=== PATIENT | female | born 1945 | race Caucasian/White ===

== ENCOUNTER 2019-04-07 11:06 | Inpatient (IN) | payer MEDICARE, OTHER ==
[~2019-04-07] VITALS: Ht 170.2 cm; Wt 113.4 kg
[2019-04-07] MEDS ORDERED: FAMOTIDINE 20 MG/2 ML VIAL IV STA (11:32)
[2019-04-07] MEDS ORDERED: SODIUM CHLORIDE 0.9% 1000ML 1,000 ML IV STA (11:32)
[2019-04-07] MEDS ORDERED: ONDANSETRON HCL INJ 2MG/ML 2ML 2 MG/ML VIAL IV STA (11:32)
[2019-04-07] MEDS ORDERED: ONDANSETRON HCL INJ 2MG/ML 2ML 2 MG/ML VIAL IV PRN (11:45)
[2019-04-07] MEDS ORDERED: MORPHINE SULFATE 2 MG/ML SYR 1ML IV PRN (11:55)
[2019-04-07 12:14] LABS: BASOPHILS % 0.4 % (0.0-1.0); EOSINOPHILS # (AUTO) 0.1 (0.0-0.4); HEMATOCRIT 30.1 % (34.2-44.1); HEMOGLOBIN 9.1 g/dL (12.0-16.0); LYMPHOCYTES # (AUTO) 0.9 (1.0-3.2); LYMPHOCYTES % 17.4 % (18.0-39.1); MEAN CORPUSCULAR HEMOGLOBIN 28.4 pg (28-32); MEAN CORPUSCULAR HGB CONC 30.2 g/dL (31-35); MEAN CORPUSCULAR VOLUME 94.1 fL (81-99); MONOCYTES # (AUTO) 0.3 (0.2-0.8); MONOCYTES % 5.6 % (4.4-11.3); NEUTROPHILS # (AUTO) 3.6 (2.1-6.9); NEUTROPHILS % 71.2 % (38.7-80.0); PLATELET COUNT 90 x10e3/uL (140-360); RED CELL DISTRIBUTION WIDTH 13.4 % (11.7-14.4)
[2019-04-07] MEDS: SODIUM CHLORIDE 0.9% 1000ML 1,000 ML IV SCH (12:20)
[2019-04-07 12:21] LABS: INR 1.1; PROTHROMBIN TIME 14.7 seconds (11.9-14.5)
[2019-04-07 12:22] LABS: PARTIAL THROMBOPLASTIN TIME 37.1 seconds (23.8-35.5)
[2019-04-07 12:35] LABS: ALBUMIN 2.3 g/dL (3.5-5.0); ALBUMIN/GLOBULIN RATIO 0.6 (0.8-2.0); ANION GAP 9.8 mmol/L (8-16); CALCIUM 9.2 mg/dL (8.4-10.2); CREATININE, SERUM 1.5 mg/dL (0.57-1.11); MAGNESIUM 1.6 MG/DL (1.3-2.1); POTASSIUM 4.8 mmol/L (3.5-5.1)
[2019-04-07 12:54] LABS: CREATINE KINASE MB 2.1 ng/mL (0-5.0); PHENYTOIN (DILANTIN) 4.79 ug/mL (10-20); THYROID STIMULATING HORMONE 1.983 uIU/mL (0.350-4.940)
[2019-04-07 13:41] LABS: CLARITY,URINE CLEAR (CLEAR); COLOR,URINE YELLOW (YELLOW); LEUKOCYTE ESTERASE ,URINE NEGATIVE (NEGATIVE)
[2019-04-07 13:42] LABS: BILIRUBIN,URINE NEGATIVE (NEGATIVE); KETONES,URINE NEGATIVE (NEGATIVE); NITRITE,URINE NEGATIVE (NEGATIVE); PROTEIN,URINE DIPSTICK 2+ (NEGATIVE); URINE UROBILINOGEN 0.2 mg/dL (0.2 - 1)
[2019-04-07 13:43] LABS: BACTERIA,URINE RARE /HPF; EPITHELIAL CELLS,URINE FEW /LPF
--- NOTE | 2019-04-07 13:56 | Diagnostic Imaging Report ---
History:Weakness Comparison studies:None Technique: Axial images were obtained from the skull base to the vertex. Coronal and sagittal images reconstructed from the axial data. Intravenous contrast: None Dose modulation, iterative reconstruction, and/or weight based adjustment of the mA/kV was utilized to reduce the radiation dose to as low as reasonably achievable. Findings: Scalp/skull: No abnormalities. Extra-axial spaces: No masses. No fluid collections. Calcification of the tentorium cerebelli and falx cerebri. Brain sulci: Moderately prominent. Ventricles: Moderate compensatory dilatation. No hydrocephalus. Parenchyma: Scattered hypodensities in the supratentorial white matter are small vessel ischemic changes. No masses, hemorrhage, acute or chronic cortical vascular insults. Sellar/suprasellar region: No abnormalities. Craniocervical junction: Patent foramen magnum. No Chiari one malformation. Incidental findings: Atherosclerotic calcifications in the carotid siphons . Opacification of the bilateral beauty advisor cells and left middle ear, related to inflammatory changes. Impression: No acute abnormalities. Chronic findings: 1. Moderate generalized volume loss. 2. Moderate supratentorial white matter small vessel ischemic changes. Signed by: DR Cipriano Hoffman M.D. on 04/07/2019 1:53 PM
--- NOTE | 2019-04-07 14:11 | Diagnostic Imaging Report ---
EXAM: CHEST SINGLE (PORTABLE) DATE: 04/07/2019 11:32 AM INDICATION: Short of breath, weakness COMPARISON: None IMPRESSION: The trachea is midline. There are patchy increased interstitial and airspace opacities present bilaterally which can be seen in the setting of edema or a multifocal infectious/inflammatory process. There are small bilateral pleural effusions. There is no evidence for pneumothorax or lobar consolidation. The cardiomediastinal silhouette is within normal limits. There are degenerative changes of the visualized spine. No acute osseous abnormality is identified. Signed by: Dr. Chad Caba MD on 04/07/2019 2:07 PM
--- NOTE | 2019-04-07 14:29 | NUR ---
ESTEBAN TERAN [phone], [id number]
--- NOTE | 2019-04-07 14:50 | Diagnostic Imaging Report ---
CT of the abdomen and pelvis, with contrast. History: Abdominal pain Comparison: None available. Technique: Multidetector CT scanning of the abdomen and pelvis was performed from the level of the lung bases to the inferior pubic rami after intravenous and oral administration of contrast. Coronal and sagittal multiplanar reformations were obtained. RADIATION DOSE: Total DLP: 2345.84 mGy*cm Dose modulation, iterative reconstruction, and/or weight based adjustment of the mA/kV was utilized to reduce the radiation dose to as low as reasonably achievable. FINDINGS: Please note that examination is limited by the patient's body habitus abutting the gantry kumar. There are trace bilateral pleural effusions, right greater than left, with associated bibasilar atelectasis/consolidation. There is a small volume of ascites present, most prominent within the upper abdomen. Attenuation values are suggestive of simple fluid. The liver is normal in size but demonstrates a nodular contour which can be seen in the setting of hepatic dysfunction/cirrhosis. The gallbladder appears contracted. There is no biliary ductal dilatation the stomach and bilateral adrenal glands are unremarkable. The spleen is enlarged and multiple collateral vessels are noted within the left upper quadrant suggestive of portal hypertension. There is mild stranding noted about the pancreatic head and duodenum. No organized peripancreatic fluid collection identified. Areas of cortical scarring noted within the kidneys bilaterally. A 3-4 mm nonobstructing stone is identified within the interpolar region of the left kidney. There is no evidence for hydronephrosis no ureteral dilatation or calcification is appreciated. The urinary bladder is collapsed around a Ibarra catheter. The uterus is not visualized and likely surgically absent. No abnormal adnexal masses are identified. The abdominal aorta is normal course and caliber with after cirrhotic calcifications. The IVC is normal in caliber. The remaining visualized loops of small and large bowel demonstrate no evidence of obstruction or inflammation. There is no intraperitoneal free air. No abnormally enlarged lymph nodes are identified within the abdomen or pelvis. The osseous structures to the straight degenerative changes without evidence for acute fracture or destructive process. The extra perineal soft tissues are unremarkable. IMPRESSION: 1. CT findings suggestive of cirrhosis and sequela of portal hypertension including splenomegaly, left upper quadrant collateral vessel formation, and small volume of ascites. 2. Mild stranding noted within the upper abdomen adjacent to the pancreas and duodenum. Findings may be reactive to ascites or can be seen in the setting of acute pancreatitis or duodenitis. Recommend correlation with symptomatology and laboratory evaluation. No organized peripancreatic fluid collection identified. 3. Nonobstructive left-sided nephrolithiasis. 4. Trace bilateral pleural effusions with associated bibasilar atelectasis/consolidation. Signed by: Dr. Chad Caba MD on 04/07/2019 2:47 PM
--- NOTE | 2019-04-07 16:28 | NUR ---
PT RESTING. NO ACUTE DISTRESS. COMFORT MEASURES GIVEN.
[2019-04-07] MEDS ORDERED: HYDRALAZINE HCL 20 MG/ML VIAL IV PRN (19:45)
[2019-04-07 20:00] VITALS: BP 129/67
--- NOTE | 2019-04-07 20:00 | NUR ---
Patient is unable to remember medications that she's taking at home. Patient is assisted by her daughter in law when taking medicines. Addendum: 04/08/19 at 0240 by Kristen Marie RN wrong time
--- NOTE | 2019-04-07 20:05 | NUR ---
Received patient from the [facility] via stretcher. Patient is alert and oriented. O2 at 2l/min via nasal cannula. Ibarra in place and draining well. IV at right AC 20 G, patent with fluid on going at 75 ml/hr. Call light within reached.
[2019-04-07] MEDS: CEFTRIAXONE SOD 1 GM/NS 50 ML 50 ML IV SCH (20:34)
[2019-04-07 21:38] VITALS: BP 129/67
--- NOTE | 2019-04-07 22:00 | NUR ---
Patient is unable to remember medications that she's taking at home. Patient is assisted by her daughter in law when taking medicines.
[2019-04-07 22:08] LABS: CREATINE KINASE MB 2.3 ng/mL (0-5.0)
[2019-04-07 22:44] VITALS: BP 129/67
[2019-04-08] VITALS (7 sets, daily range): BP systolic 154–184; BP diastolic 58–77
[2019-04-08] MEDS: SODIUM CHLORIDE 0.9% 1000ML 1,000 ML IV SCH (01:03)
--- NOTE | 2019-04-08 06:12 | NUR ---
Call placed to son, number provided is not working, called daughter in law no answer.
--- NOTE | 2019-04-08 06:28 | NUR ---
Patient refused lab test and states she is tired of the needles.
--- NOTE | 2019-04-08 06:38 | NUR ---
Patient refused blood pressure rechecked and prn medication.
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
[2019-04-08 08:09] LABS: BASOPHILS % 0.5 % (0.0-1.0); EOSINOPHILS # (AUTO) 0.2 (0.0-0.4); EOSINOPHILS % 2.8 % (0.0-6.0); LYMPHOCYTES # (AUTO) 1.1 (1.0-3.2); LYMPHOCYTES % 16.7 % (18.0-39.1); MEAN CORPUSCULAR HEMOGLOBIN 28.9 pg (28-32); MEAN CORPUSCULAR VOLUME 93.2 fL (81-99); MONOCYTES # (AUTO) 0.4 (0.2-0.8); NEUTROPHILS # (AUTO) 4.6 (2.1-6.9); NEUTROPHILS % 71.1 % (38.7-80.0); PLATELET COUNT 99 x10e3/uL (140-360); RED BLOOD COUNT 3.11 x10e6/uL (3.6-5.1); RED CELL DISTRIBUTION WIDTH 13.6 % (11.7-14.4)
[2019-04-08 08:33] LABS: ALBUMIN 2.3 g/dL (3.5-5.0); ALBUMIN/GLOBULIN RATIO 0.7 (0.8-2.0); ANION GAP 8.5 mmol/L (8-16); CALCIUM 9.4 mg/dL (8.4-10.2); CREATININE, SERUM 1.32 mg/dL (0.57-1.11); MAGNESIUM 1.5 MG/DL (1.3-2.1); PHOSPHORUS 2.8 MG/DL (2.3-4.7); POTASSIUM 4.5 mmol/L (3.5-5.1)
--- NOTE | 2019-04-08 08:52 | NUR ---
patient taken by bed for bed for CT, cooperative with care , new IV 20G reinserted back in right AC, good blood return, no s/sx of infiltration
[2019-04-08 09:01] LABS: CREATINE KINASE MB 3.5 ng/mL (0-5.0)
[2019-04-08] MEDS: AZITHROMYCIN 500MG/NS 250 ML 250 ML IV SCH (09:53)
[2019-04-08] MEDS: FAMOTIDINE 20 MG TAB PO SCH ×2 (10:04→19:39)
[2019-04-08] MEDS: DOCUSATE SODIUM 100 MG CAP PO SCH ×2 (10:04→19:39)
--- NOTE | 2019-04-08 10:37 | Diagnostic Imaging Report ---
CT of the chest, without contrast, 04/08/2019. History: Bilateral infiltrates. Comparison: Chest x-ray 04/07/2019. Technique: Multidetector CT scanning of the chest was performed from the level of the apices to the upper abdomen without contrast. Coronal and sagittal multiplanar reformations were obtained. RADIATION DOSE: Total DLP: 417 mGy*cm Dose modulation, iterative reconstruction, and/or weight based adjustment of the mA/kV was utilized to reduce the radiation dose to as low as reasonably achievable. Discussion: Evaluation is limited without IV contrast. Chest: The heart is enlarged. The main pulmonary artery is dilated measuring 3.2 cm. The thoracic aorta is within normal limits. Mildly enlarged paratracheal lymph node is present measuring 1.1 cm. Patchy airspace and groundglass opacities are present throughout both upper and lower lobes. Small right and trace left pleural effusion are present. Calcified granulomata are present in the right lower lobe. Limited evaluation of the upper abdomen shows mild ascites. Bones and soft tissues: There is mottled appearance of the bones are diffusely. IMPRESSION: 1. Cardiomegaly and pulmonary enlargement with patchy bilateral consolidation and ground glass opacities and small pleural effusions suggestive of CHF, but superimposed pneumonia cannot be excluded. 2. Mottled appearance of the bones diffusely may be secondary to metabolic process, but metastatic disease cannot be excluded, consider nuclear medicine bone scan. Signed by: Nikko Mott on 04/08/2019 10:34 AM
--- NOTE | 2019-04-08 11:04 | NUR ---
covering for ector, verified that blood sugar monitoring order, okay to discontinue, labs reviewed with him
--- NOTE | 2019-04-08 13:16 | Consultation ---
DATE OF CONSULTATION: 04/08/2019 Pulmonary Critical Care Consultation CHIEF COMPLAINT: Altered mental status and bilateral infiltrates. HISTORY OF PRESENT ILLNESS: The patient is a 73-year-old woman. She has a history of cirrhosis. She also has a history of hypertension and diabetes and prior cerebrovascular accident. Overall, the patient denies being confused, the records indicate some confusion. She also complains of cough and some increased congestion. She notes some bilateral lower abdominal pain. She denies nausea or vomiting. She has no dysuria. PAST SURGICAL HISTORY: 1. Status post hysterectomy. 2. Status post cholecystectomy. 3. Status post partial colectomy. 4. Status post appendectomy. PAST MEDICAL HISTORY: 1. Hypertension. 2. Diabetes. 3. Coronary artery disease. 4. Hypothyroidism. 5. Cerebrovascular accident. 6. Cirrhosis. SOCIAL HISTORY: The patient has never been a smoker. She denies any alcohol use. ALLERGIES: THERE ARE NO KNOWN DRUG ALLERGIES. FAMILY HISTORY: There is a history of diabetes and hypertension. REVIEW OF SYSTEMS: The patient is afebrile. There is no headache. The patient has no neck pain. The patient does note some cough and some congestion. There is no chest pain. There is no nausea or vomiting. There is some lower abdominal pain. PHYSICAL EXAMINATION: VITAL SIGNS: The blood pressure is 175/77 and the saturation is 98% on 2 L. Pulse is 67 and respiratory rate is 19. HEENT: Shows no facial swelling or erythema. CARDIAC: Reveals regular rate and rhythm with normal S1 and S2. There are no murmurs or rubs. LUNGS: Auscultation of lungs reveals few crackles at both bases. There is no wheezing. ABDOMEN: Soft and nontender. There is no rebound or guarding. EXTREMITIES: Shows 1 to 2+ leg edema. LABORATORY DATA: BUN to creatinine ratio is 31 to 1.5. The other electrolytes are within normal limits. The white blood cell count is 5 and hemoglobin is 9.1. The platelet count is 90. RADIOGRAPHIC DATA: Chest x-ray shows patchy interstitial alveolar opacities. CT scan of the abdomen and pelvis shows cirrhosis and some portal hypertension including splenomegaly. There is a nonobstructive nephrolithiasis on the left. IMPRESSION: 1. Community-acquired pneumonia. 2. Cirrhosis. 3. Thrombocytopenia. 4. Chronic renal failure, stage 3. 5. Metabolic encephalopathy. 6. Diabetes. 7. Hypothyroidism. PLAN: 1. Continue Rocephin and Zithromax. 2. CT scan of the chest. 3. Continue current regimen for cirrhosis. 4. Monitor electrolytes. MD RICHARD Ramires/MODL /[id number]
--- NOTE | 2019-04-08 14:17 | NUR ---
WOUND CARE CONSULT 73 YO FEMALE HX ABDOMINAL PAIN , OBESE, DYSPNEA, WEAKNESS OUMOU 16 ON MODERATE PUP AND ALTERNATING PRESSURE SURFACE LABS: WBC- 6.52, HGB- 9, GLUCOSE- 143 SKIN ASSESSMENT COMPLETE PATIENT PRESENTS WITH DENUDED SKIN TO HEYDI GROIN AREA AND BUTTOCKS PATIENT ALSO HAS SMALL 1CM X1CM HEALING ABRASION TO RIGHT LATERAL ANKLE RECOMMENDATIONS :NURSING TO CONTINUE TO MAINTAIN MODERATE PUP STATUS AND INTERVENTIONS NURSING TO CONTINUE TO ASSIST PATIENT OUT OF BED FOR MEALS AND MUCH TOLERATED NURSING TO MAINTAIN PATIENT HEYDI AREA AND BUTTOCKS CLEAN AND DRY APPLY DAILY REMEDY BARRIER PASTE AND PRN BETWEEN CLEANING NURSING TO MONITOR AND PROTECT HEALING ABRASION TO INNER RIGHT ANKLE LEAVE OPEN TO AIR PAINT WITH BETADINE DAILY Addendum: 04/08/19 at 1431 by Jordan Gonzalez RN Amended: Links added.
[2019-04-08] MEDS ORDERED: FUROSEMIDE INJ 10 MG/ML 2 ML VIAL IV ONE (17:30)
[2019-04-08] MEDS ORDERED: LEVOTHYROXINE SODIUM 125 MCG TAB PO SCH (17:45)
[2019-04-08] MEDS ORDERED: ALBUTEROL/IPRATROPIUM 3 ML NEB NEB PRN (17:45)
[2019-04-08] MEDS ORDERED: NIFEDIPINE CR 30 MG TAB PO SCH (17:45)
[2019-04-08] MEDS ORDERED: LACTULOSE SYRUP 20 GM/30 ML UDC PO PRN (18:00)
[2019-04-08] MEDS ORDERED: DICYCLOMINE HCL 20 MG TAB PO PRN (18:00)
[2019-04-08] MEDS: RIFAXIMIN 550 MG TABLET PO SCH (19:39)
[2019-04-08] MEDS: CEFTRIAXONE SOD 1 GM/NS 50 ML 50 ML IV SCH (20:31)
[2019-04-08] MEDS ORDERED: ATORVASTATIN 20 MG TAB PO SCH (21:00)
[2019-04-08] MEDS: DONEPEZIL HCL 5 MG TAB PO SCH (21:20)
[2019-04-08] MEDS: ATORVASTATIN 40 MG TAB PO SCH (21:20)
[2019-04-08] MEDS: FLUOXETINE HCL 10 MG CAP PO SCH (21:20)
[2019-04-08] MEDS: PHENYTOIN SODIUM EXT REL 100 MG CAP PO SCH (21:20)
[2019-04-09] VITALS (9 sets, daily range): BP systolic 138–186; BP diastolic 65–77
[2019-04-09] MEDS ORDERED: PANTOPRAZOLE SO40 MG PO (01:54)
[2019-04-09] MEDS ORDERED: TYLENOL WITH C1 EACH PO (01:54)
[2019-04-09] MEDS ORDERED: HUMULIN R100 UNIT/2 (01:54)
[2019-04-09] MEDS ORDERED: FLUOXETINE HCL10 MG PO (01:54)
[2019-04-09] MEDS ORDERED: GLIPIZIDE5 MG PO (01:54)
[2019-04-09] MEDS ORDERED: DICYCLOMINE HCL20 MG PO (01:54)
[2019-04-09] MEDS ORDERED: FUROSEMIDE40 MG PO (01:54)
[2019-04-09] MEDS ORDERED: CLOTRIMAZOLE-BE15 GM TOP (01:54)
[2019-04-09] MEDS ORDERED: ALBUTEROL SULFAT2 MG INH (01:54)
[2019-04-09] MEDS ORDERED: PROCARDIA XL30 MG PO (01:54)
[2019-04-09] MEDS ORDERED: TRAZODONE HCL50 MG PO (01:54)
[2019-04-09] MEDS ORDERED: ERIVEDGE150 MG PO (01:54)
[2019-04-09] MEDS ORDERED: ANORO ELLIPTA1 EACH (01:54)
[2019-04-09] MEDS ORDERED: SEROQUEL25 MG PO (01:54)
[2019-04-09] MEDS ORDERED: ARICEPT5 MG PO (01:54)
[2019-04-09] MEDS ORDERED: HUMULIN 70100 UNIT/3 SC (01:54)
[2019-04-09] MEDS ORDERED: NYSTATIN1 EAC2 (01:54)
[2019-04-09] MEDS ORDERED: LORAZEPAM2 MG/1 M1 PO (01:54)
[2019-04-09] MEDS ORDERED: CETIRIZINE HCL10 MG PO (01:54)
[2019-04-09] MEDS ORDERED: LEVOTHYROXINE50 MCG PO (01:54)
[2019-04-09] MEDS ORDERED: ASPIRIN81 MG PO (01:54)
[2019-04-09] MEDS ORDERED: ZOFRAN4 MG PO (01:54)
[2019-04-09] MEDS ORDERED: CARVEDILOL3.125 MG PO (01:54)
[2019-04-09] MEDS ORDERED: LACTULOSE10 GM/15 M PO (01:54)
[2019-04-09] MEDS ORDERED: LIPITOR20 MG PO (01:54)
[2019-04-09] MEDS ORDERED: ALENDRONATE SOD70 MG PO (01:54)
[2019-04-09] MEDS ORDERED: FLUTICASONE PRO16 GM (01:54)
[2019-04-09] MEDS ORDERED: SUCRALFATE1 GM PO (01:54)
[2019-04-09] MEDS ORDERED: POLYETHYLENE GL17 GM PO (01:54)
[2019-04-09] MEDS ORDERED: XIFAXAN550 MG PO (01:54)
[2019-04-09] MEDS ORDERED: PHENYTOIN SODI100 MG PO (01:54)
[2019-04-09] MEDS ORDERED: PROAIR HFA INH8.5 GM (01:54)
[2019-04-09] MEDS ORDERED: CEFUROXIME250 MG PO (02:03)
[2019-04-09] MEDS ORDERED: PROCARDIA XL30 MG (02:03)
[2019-04-09 03:02] LABS: BASOPHILS % 0.3 % (0.0-1.0); EOSINOPHILS # (AUTO) 0.1 (0.0-0.4); EOSINOPHILS % 1.9 % (0.0-6.0); HEMATOCRIT 27.7 % (34.2-44.1); HEMOGLOBIN 8.9 g/dL (12.0-16.0); LYMPHOCYTES # (AUTO) 1.3 (1.0-3.2); LYMPHOCYTES % 18.4 % (18.0-39.1); MEAN CORPUSCULAR HEMOGLOBIN 29.4 pg (28-32); MEAN CORPUSCULAR HGB CONC 32.1 g/dL (31-35); MEAN CORPUSCULAR VOLUME 91.4 fL (81-99); MONOCYTES # (AUTO) 0.4 (0.2-0.8); MONOCYTES % 5.3 % (4.4-11.3); NEUTROPHILS # (AUTO) 4.9 (2.1-6.9); NEUTROPHILS % 72.2 % (38.7-80.0); PLATELET COUNT 104 x10e3/uL (140-360); RED BLOOD COUNT 3.03 x10e6/uL (3.6-5.1); RED CELL DISTRIBUTION WIDTH 13.8 % (11.7-14.4)
[2019-04-09 03:15] LABS: ALBUMIN 2.3 g/dL (3.5-5.0); ALBUMIN/GLOBULIN RATIO 0.7 (0.8-2.0); ANION GAP 8.6 mmol/L (8-16); CALCIUM 9.5 mg/dL (8.4-10.2); CREATININE, SERUM 1.39 mg/dL (0.57-1.11); POTASSIUM 4.6 mmol/L (3.5-5.1)
[2019-04-09] MEDS: PHENYTOIN SODIUM EXT REL 100 MG CAP PO SCH ×3 (05:36→21:24)
[2019-04-09] MEDS: LEVOTHYROXINE SODIUM 100 MCG TAB PO SCH (05:37)
--- NOTE | 2019-04-09 05:52 | NUR ---
Patient is confused. Screaming and calling names. Patients states she can't stop herself from screaming. She don't want to be alone because she is afraid that somebody might kill or hurt her. Prince OLSON notified. No new medications ordered. Order for psych consult received from Prince OLSON.
--- NOTE | 2019-04-09 06:19 | NUR ---
Called Dr. Butts answering service for consultation.
--- NOTE | 2019-04-09 06:58 | NUR ---
Spoke with Dr. Butts new orders received.
[2019-04-09] MEDS ORDERED: HALOPERIDOL LACTATE 5 MG/ML VIAL IM PRN (07:00)
[2019-04-09] MEDS ORDERED: LORAZEPAM INJ 2 MG/ML VIAL IM PRN (07:00)
--- NOTE | 2019-04-09 07:41 | NUR ---
resume car of patient, SBAR report received from Ginny DAMON, patient placed on ISolation for ESBL(+) urine, on contact isolation at this time, awake alert, oriented X 4, walker at bedside, no respiratory distress noted, toileting offer and accepted, safety maintained, patient educated on dont fall call, call light within reach Addendum: 04/09/19 at 0752 by TORSTEN CORONADO RN entry wrong patient
--- NOTE | 2019-04-09 07:52 | NUR ---
resume care of patient, patient awake alert to self, bedbound, no distresss noted, skin warm dry, oxygen therapy continued, IV fluids continued, IV site RAC patent intact flushes well, bed in lowest position call light within reach
[2019-04-09] MEDS ORDERED: ACETAMINOPHEN 325 MG TAB PO PRN (08:15)
[2019-04-09] MEDS: DOCUSATE SODIUM 100 MG CAP PO SCH ×2 (08:47→16:21)
[2019-04-09] MEDS: FAMOTIDINE 20 MG TAB PO SCH ×2 (08:47→16:21)
[2019-04-09] MEDS: SPIRONOLACTONE 25 MG TAB PO SCH (08:47)
[2019-04-09] MEDS: CARVEDILOL 12.5 MG TAB PO SCH ×2 (08:48→16:22)
[2019-04-09] MEDS: FUROSEMIDE 40 MG TAB PO SCH (08:49)
[2019-04-09] MEDS: GUAIFENESIN 600 MG TAB PO SCH ×2 (08:49→16:22)
[2019-04-09] MEDS: RIFAXIMIN 550 MG TABLET PO SCH ×2 (08:50→16:23)
[2019-04-09] MEDS: AZITHROMYCIN 500MG/NS 250 ML 250 ML IV SCH (08:51)
[2019-04-09] MEDS: NIFEDIPINE CR 30 MG TAB PO SCH ×2 (08:55→16:22)
[2019-04-09] MEDS ORDERED: DICYCLOMINE HCL 20 MG TAB PO ONE (09:00)
--- NOTE | 2019-04-09 10:14 | Progress Note ---
DATE: 04/09/2019 SUBJECTIVE: The patient feels better. There is less congestion and less cough. PHYSICAL EXAMINATION: VITAL SIGNS: The blood pressure is 166/72 and the saturation is 96% on 2 L. The pulse is 67. CARDIAC: Reveals regular rate and rhythm with normal S1, S2. There are no murmurs or rubs heard. LUNGS: Auscultation of lungs shows decreased breath sounds at the bases. There is no wheezing. ABDOMEN: Soft and nontender. There is no rebound or guarding. EXTREMITIES: Show no leg edema or calf tenderness. There is no cyanosis or clubbing. SKIN: Shows no rashes. NEUROLOGIC: Shows the patient to be more oriented today. RADIOGRAPHIC DATA: CT scan of the chest shows cardiomegaly and some pulmonary congestion. There are small pleural effusions. IMPRESSION: 1. Cirrhosis. 2. Community-acquired pneumonia. 3. Thrombocytopenia. 4. Chronic renal failure, stage 3. 5. Metabolic encephalopathy. 6. Diabetes. PLAN: 1. Cardiac evaluation and echocardiogram. 2. Continue current regimen for cirrhosis. 3. Continue current antibiotics. 4. Continue to monitor respiratory status. Andry Maya MD [facility]/MODL /[id number]
--- NOTE | 2019-04-09 10:23 | NUR ---
TREAD BOOKER gerald contacted regarding discontinuation of khan, ordered to DC khan and start with purewick system
[2019-04-09] MEDS: AZITHROMYCIN 250 MG TAB PO SCH (11:30)
--- NOTE | 2019-04-09 12:44 | NUR ---
PT WITH PHYSICAL THERAPY UNABLE TO TALK WITH HIM
[2019-04-09] MEDS ORDERED: OLANZAPINE 5 MG TAB PO PRN (12:45)
[2019-04-09] MEDS ORDERED: RISPERIDONE 0.5 MG TAB PO PRN (13:00)
--- NOTE | 2019-04-09 13:25 | NUR ---
patient s/p dialysis now, 3 liters removed, patient remains hypertensive SBP <170's, blood pressure medication held this am given, will reasess blood pressure in one hour
--- NOTE | 2019-04-09 19:56 | NUR ---
16FR GORDON REINSERTED FOR RETENTION, patient tolerated well, no hematuria noted
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
[2019-04-09] MEDS: ATORVASTATIN 40 MG TAB PO SCH (21:23)
[2019-04-09] MEDS: DONEPEZIL HCL 5 MG TAB PO SCH (21:23)
[2019-04-09] MEDS: CEFTRIAXONE SOD 1 GM/NS 50 ML 50 ML IV SCH (21:26)
[2019-04-10] MEDS: FLUOXETINE HCL 10 MG CAP PO SCH (00:13)
[2019-04-10 04:00] VITALS: BP 169/72
[2019-04-10 05:17] LABS: BASOPHILS % 0.2 % (0.0-1.0); EOSINOPHILS # (AUTO) 0.1 (0.0-0.4); EOSINOPHILS % 1.1 % (0.0-6.0); HEMATOCRIT 25.2 % (34.2-44.1); LYMPHOCYTES # (AUTO) 1.1 (1.0-3.2); LYMPHOCYTES % 19.9 % (18.0-39.1); MEAN CORPUSCULAR HEMOGLOBIN 29.5 pg (28-32); MEAN CORPUSCULAR HGB CONC 31.7 g/dL (31-35); MONOCYTES # (AUTO) 0.3 (0.2-0.8); MONOCYTES % 5.3 % (4.4-11.3); NEUTROPHILS # (AUTO) 3.8 (2.1-6.9); NEUTROPHILS % 72.4 % (38.7-80.0); PLATELET COUNT 78 x10e3/uL (140-360); RED BLOOD COUNT 2.71 x10e6/uL (3.6-5.1)
[2019-04-10] MEDS: PHENYTOIN SODIUM EXT REL 100 MG CAP PO SCH (05:37)
[2019-04-10] MEDS: LEVOTHYROXINE SODIUM 100 MCG TAB PO SCH (05:37)
[2019-04-10 05:42] LABS: ANION GAP 8.5 mmol/L (8-16); CALCIUM 8.6 mg/dL (8.4-10.2); CREATININE, SERUM 1.38 mg/dL (0.57-1.11); POTASSIUM 4.5 mmol/L (3.5-5.1)
--- NOTE | 2019-04-10 07:20 | NUR ---
patient condition throughout the night was stable, patient endorsed to next shift.
--- NOTE | 2019-04-10 07:30 | NUR ---
PT IN BED SLEEPING NO DISTRESS NOTED,NO S/S DISCOMFORT
--- NOTE | 2019-04-10 07:30 | NUR ---
PT IN BED SLEEPING NO DISTRESS NTOED,DENIES Pain
[2019-04-10 08:00] VITALS: BP 139/64
[2019-04-10] MEDS ORDERED: CARVEDILOL 12.5 MG TAB PO SCH (09:00)
[2019-04-10] MEDS: FAMOTIDINE 20 MG TAB PO SCH (09:15)
[2019-04-10] MEDS: DOCUSATE SODIUM 100 MG CAP PO SCH (09:15)
[2019-04-10] MEDS: SPIRONOLACTONE 25 MG TAB PO SCH (09:15)
[2019-04-10] MEDS: NIFEDIPINE CR 30 MG TAB PO SCH (09:16)
[2019-04-10] MEDS: RIFAXIMIN 550 MG TABLET PO SCH (09:16)
[2019-04-10] MEDS: FUROSEMIDE 40 MG TAB PO SCH (09:16)
[2019-04-10] MEDS: GUAIFENESIN 600 MG TAB PO SCH (09:16)
[2019-04-10 09:20] VITALS: BP 139/64
--- NOTE | 2019-04-10 09:28 | NUR ---
SPOKE WITH ESTEBAN DAUGHTER IN LAW, SHE STATES HAS BEEN TO [facility] AND WANTS HER TO RETURN THERE SINCE IT IS CLOSER TO [place] WHERE THEY LIVE. FILED CHOICE IN CHART, GOT PACKET TOGETHER AND FAXED TO [facility], SPOKE WITH CLIFF AT FACILITY WILL PROCESS WHEN GETS.
[2019-04-10] MEDS: AZITHROMYCIN 250 MG TAB PO SCH (10:31)
[2019-04-10 12:00] VITALS: BP 172/72
--- OUTSIDE RECORDS SUMMARY | 2019-04-10 13:14 | XMS REPORT ---
Author Author [facility] Organization [facility] Address Unknown Phone Unavailable Care Team Providers Care Estate Planning Attorney Name Role Phone ADRIA VILA Unavailable Unavailable Payers Payer Name Policy Type Policy Number Effective Date Expiration Date Problems This patient has no known problems. Allergies, Adverse Reactions, Alerts Allergy Name Allergy Type Status Severity Reaction(s) Onset Date Inactive Date Treating Clinician Comments No Known Allergies DA Active U 2015-07-08 00:00:00 Medications This patient has no known medications. Results Test Description Test Time Test Comments Text Results Atomic Results Result Comments CT CHEST WO 2019-04-08 10:25:00 [place] [address] Patient Name: DESHAUN TERAN MR #: [id number] : 1945 Age/Sex: 73/F Req #: [id number] Adm Physician: ADRIA VILA MD Ordered by: DEBI VALENZUELA MD Report #: [id number] Location: MED/SURG3 Room/Bed: [facility] Procedure: [id number] CT/CT CHEST WO Exam Date: 04/08/19 Exam Time: 15 REPORT STATUS: Signed CT of the chest, without contrast, 04/08/2019. History: Bilateral infiltrates. Comparison: Chest x-ray 04/07/2019. Technique: Multidetector CT scanning of the chest was performed from the level of the apices to the upper abdomen without contrast. Coronal and sagittal multiplanar reformations were obtained. RADIATION DOSE: Total DLP: 417 mGy*cm Dose modulation, iterative reconstruction, and/or weight based adjustment of the mA/kV was utilized to reduce the radiation dose to as low as reasonably achievable. Discussion: Evaluation is limited without IV contrast. Chest: The heart is enlarged. The main pulmonary artery is dilated measuring 3.2 cm. The thoracic aorta is within normal limits. Mildly enlarged paratracheal lymph node is present measuring 1.1 cm. Patchy airspace and groundglass opacities are present throughout both upper and lower lobes. Small right and trace left pleural effusion are present. Calcified granulomata are present in the right lower lobe. Limited evaluation of the upper abdomen shows mild ascites. Bones and soft tissues: There is mottled appearance of the bones are diffusely. IMPRESSION: 1. Cardiomegaly and pulmonary enlargement with patchy bilateral consolidation and ground glass opacities and small pleural effusions suggestive of CHF, but superimposed pneumonia cannot be excluded. 2. Mottled appearance of the bones diffusely may be secondary to metabolic process, but metastatic disease cannot be excluded, consider nuclear medicine bone scan. Signed by: Nikko Mott on 04/08/2019 10:34 AM Dictated By: NIKKO MTOT MD 1034 Transcribed By: KATHLEEN on 04/08/19 1034 COPY TO: DBEI VALENZUELA MD CT ABDOMEN/PELVIS WO 2019-04-07 14:35:00 [place] [address] Patient Name: DESHAUN TERAN MR #: [id number] : 1945 Age/Sex: 73/F Req #: [id number] Adm Physician: ADRIA VILA MD Ordered by: MICHAEL RODRÍGUEZ MD, MD Report #: [id number] Location: [facility] Room/Bed: [place] [address] Procedure: [id number] CT/CT ABDOMEN/PELVIS WO Exam Date: 04/07/19 Exam Time: 1300 REPORT STATUS: Signed CT of the abdomen and pelvis, with contrast. History: Abdominal pain Comparison: None available. Technique: Multidetector CT scanning of the abdomen and pelvis was performed from the level of the lung bases to the inferior pubic rami after intravenous and oral administration of contrast. Coronal and sagittal multiplanar reformations were obtained. RADIATION DOSE: Total DLP: 2345.84 mGy*cm Dose modulation, iterative reconstruction, and/or weight based adjustment of the mA/kV was utilized to reduce the radiation dose to as low as reasonably achievable. FINDINGS: Please note that examination is limited by the patient's body habitus abutting the gantry kumar. There are trace bilateral pleural effusions, right greater than left, with associated bibasilar atelectasis/consolidation. There is a small volume of ascites present, most prominent within the upper abdomen. Attenuation values are suggestive of simple fluid. The liver is normal in size but demonstrates a nodular contour which can be seen in the setting of hepatic dysfunction/cirrhosis. The gallbladder appears contracted. There is no biliary ductal dilatation the stomach and bilateral adrenal glands are unremarkable. The spleen is enlarged and multiple collateral vessels are noted within the left upper quadrant suggestive of portal hypertension. There is mild stranding noted about the pancreatic head and duodenum. No organized peripancreatic fluid collection identified. Areas of cortical scarring noted within the kidneys bilaterally. A 3-4 mm nonobstructing stone is identified within the interpolar region of the left kidney. There is no evidence for hydronephrosis no ureteral dilatation or calcification is appreciated. The urinary bladder is collapsed around a Ibarra catheter. The uterus is not visualized and likely surgically absent. No abnormal adnexal masses are identified. The abdominal aorta is normal course and caliber with after cirrhotic calcifications. The IVC is normal in caliber. The remaining visualized loops of small and large bowel demonstrate no evidence of obstruction or inflammation. There is no intraperitoneal free air. No abnormally enlarged lymph nodes are identified within the abdomen or pelvis. The osseous structures to the straight degenerative changes without evidence for acute fracture or destructive process. The extra perineal soft tissues are unremarkable. IMPRESSION: 1. CT findings suggestive of cirrhosis and sequela of portal hypertension including splenomegaly, left upper quadrant collateral vessel formation, and small volume of ascites. 2. Mild stranding noted within the upper abdomen adjacent to the pancreas and duodenum. Findings may be reactive to ascites or can be seen in the setting of acute pancreatitis or duodenitis. Recommend correlation with symptomatology and laboratory evaluation. No organized peripancreatic fluid collection identified. 3. Nonobstructive left-sided nephrolithiasis. 4. Trace bilateral pleural effusions with associated bibasilar atelectasis/consolidation. Signed by: Dr. Chad Caba MD on 04/07/2019 2:47 PM Dictated By: CHAD NEIL MD 1447 Transcribed By: KATHLEEN on 04/07/19 1447 COPY TO: MICHAEL RODRÍGUEZ CHEST SINGLE (PORTABLE) 2019-04-07 14:05:00 [place] [address] Patient Name: DESHAUN TERAN MR #: [id number] : 1945 Age/Sex: 73/F Req #: [id number] Adm Physician: ADRIA VILA MD Ordered by: MICHAEL RODRÍGUEZ MD, MD Report #: [id number] Location: [facility] Room/Bed: [place] [address] Procedure: [id number] DX/CHEST SINGLE (PORTABLE) Exam Date: 04/07/19 Exam Time: 1310 REPORT STATUS: Signed EXAM: CHEST SINGLE (PORTABLE) DATE: 04/07/2019 11:32 AM INDICATION: Short of breath, weakness COMPARISON: None IMPRESSION: The trachea is midline. There are patchy increased interstitial and airspace opacities present bilaterally which can be seen in the setting of edema or a multifocal infectious/inflammatory process. There are small bilateral pleural effusions. There is no evidence for pneumothorax or lobar consolidation. The cardiomediastinal silhouette is within normal limits. There are degenerative changes of the visualized spine. No acute osseous abnormality is identified. Signed by: Dr. Chad Caba MD on 04/07/2019 2:07 PM Dictated By: CHAD CABA MD 06 Transcribed By: KATHLEEN on 04/07/191406 COPY TO: MICHAEL RODRÍGUEZ CT BRAIN WO 2019-04-07 13:50:00 [place] [address] Patient Name: DESHAUN TERAN MR #: [id number] : 1945 Age/Sex: 73/F Req #: [id number] Adm Physician: ADRIA VILA MD Ordered by: ELLIS WEBB WHAT JOB TITLES MEAN Report #: [id number] Location: [facility] Room/Bed: [place] [address] Procedure: [id number] CT/CT BRAIN WO Exam Date: 04/07/19 Exam Time: 1300 REPORT STATUS: Signed History:Weakness Comparison studies:None Technique: A xial images were obtained from the skull base to the vertex. Coronal and sagittal images reconstructed from the axial data. Intravenous contrast: None Dose modulation, iterative reconstruction, and/or weight based adjustment of the mA/kV was utilized to reduce the radiation dose to as low as reasonably achievable. Findings: Scalp/skull: No abnormalities. Extra- axial spaces: No masses. No fluid collections. Calcification of the tentorium cerebelli and falx cerebri. Brain sulci: Moderately prominent. Ventricles: Moderate compensatory dilatation. No hydrocephalus. Parenchyma: Scattered hypodensities in the supratentorial white matter are small vessel ischemic changes. No masses, hemorrhage, acute or chronic cortical vascular insults. Sellar/suprasellar region: No abnormalities. Craniocervical junction: Patent foramen magnum. No Chiari one malformation. Incidental findings: Atherosclerotic calcifications in the carotid siphons . Opacification of the bilateral hotel recreational facilities manager cells and left middle ear, related to inflammatory changes. Impression: No acute abnormalities. Chronic findings: 1. Moderate generalized volume loss. 2. Moderate supratentorial white matter small vessel ischemic changes. Signed by: DR Cipriano Hoffman M.D. on 04/07/2019 1:53 PM Dictated By: CIPRIANO CHAN MD 1353 Transcribed By: KATHLEEN on 04/07/19 1353 COPY TO: ELLIS WEBB NP GLUBED 2019-01-30 12:15:00 GLUBED (test code=GLUBED) 119 mg/dL 74-106 Performed by certified slope hoist operator at [facility] [id number] 09:22:00* Test Item Value Reference Range Comments GLUBED (test code=GLUBED) 85 mg/dL 74-106 [facility] [id number] 20:35:00* Test Item Value Reference Range Comments GLUBED (test code=GLUBED) 107 mg/dL 74-106 Performed by certified slope hoist operator at [facility] [id number] 16:41:00* Test Item Value Reference Range Comments GLUBED (test code=GLUBED) 108 mg/dL 74-106 [facility] [id number] 12:15:00* Test Item Value Reference Range Comments GLUBED (test code=GLUBED) 93 mg/dL 74-106 Performed by certified slope hoist operator at [facility] [id number] 08:05:00* Test Item Value Reference Range Comments GLUBED (test code=GLUBED) 73 mg/dL 74-106 [facility]formed [facility] [id number] 21:36:00* Test Item Value Reference Range Comments GLUBED (test code=GLUBED) 194 mg/dL 74-106 Performed by certified slope hoist operator at [facility] POC VENOUS BLOOD [id number] 14:59:00* Test Item Value Reference Range Comments POC VENOUS BLOOD GAS PH (test code=POCPHV) 7.343 POC VENOUS BLOOD GAS PCO2 (test code=RWFMTE2M) 64.0 mmHg 35.0-45.0 POC VENOUS BLOOD GAS PO2 (test code=XBWXW3U) 33.0 mmHG 0-40 POC HCO3 VENOUS (test code=PSCULU9T) 34.7 MMOL/L 20-26 POC BASE EXCESS VENOUS (test code=POCBEV) 9 MMOL/L -3.0-3.0 POC O2 SATURATION VENOUS (test code=NUMD3MG) 58 % 72-77 - XR CHEST 1 [id number] 14:21:00 FAX: Adria Burton MD [place]: [place] St: REG FAX: Yojana Veliz MD Name: DESHAUN TERAN [facility] FSED : 1945 Age/S: 73/F [address] [facility] [address] Unit #: [id number] [facility] [address] Phys: Yojana Veliz MD [place], [place] [address] Acct: [id number] Dis Date: Status: REG ER PHONE #: Exam Date: 01/28/2019 1259 FAX #: Reason: CHEST PAIN EXAMS: CPT CODE: [id number] XR CHEST 1 V 73325 HISTORY: Chest pain. COMPARISON: November 13, 2017. Patchy bibasal infiltrates. Small left effusion with subsegmental atelectasis. Lung scarring. Mild cardiomegaly. IMPRESSION: Patchy bibasal infiltrates and left lower lobe segmental atelectasis and small effusion. at 1421 Reported and signed by: Lucien Patricia M.D. CC: Adria Vila; Yojana Veliz MD Technologist: Antonino Kirby Trnscrd Date/Time/By: 01/28/2019 (1080) : By: [email or web address] Orig Print D/T: S: 01/28/2019 (5461) PAGE 1 Signed Report URINALYSIS [id number] 13:57:00* Test Item Value Reference Range Comments UA COLOR (test code=COLU) YELLOW YELLOW UA APPEARANCE (test code=APPU) HAZY CLEAR UA GLUCOSE DIPSTICK (test code=DGLUU) NEGATIVE mg/dL NEGATIVE UA BILIRUBIN DIPSTICK (test code=BILU) NEGATIVE NEGATIVE UA KETONE DIPSTICK (test code=KETU) NEGATIVE mg/dL NEGATIVE UA SPECIFIC GRAVITY (test code=SGU) 1.025 1.001-1.035 UA BLOOD DIPSTICK (test code=FAVIAN) 3+ (Large) NEGATIVE UA PH DIPSTICK (test code=JEEVAN) 6.0 5.0-8.0 UA PROTEIN DIPSTICK (test code=PROU) >=300 (3+) mg/dL Neg-15 UA UROBILINIOGEN DIPSTICK (test code=URO) 0.2 mg/dL 0.0-0.2 UA NITRITE DIPSTICK (test code=GARRISON) POSITIVE NEGATIVE UA LEUKOCYTE ESTERASE DIPSTICK (test code=LEUU) 2+ uL NEGATIVE UA MICROSCOPIC NEEDED? (test code=UAMICRO) YES UA WBC (test code=WBCU) >100 per HPF 0-5 UA RBC (test code=RBCU) 50-100 per HPF 0-5 UA EPITHELIAL CELLS (test code=EPIU) Few (2-5/hpf) per HPF Few UA BACTERIA (test code=BACU) LOADED per HPF NONE UA MUCUS (test code=MUCU) MANY per LPF NONE-FEW Urine Source? Clean CatchURINALYSIS [id number] 13:51:00* Test Item Value Reference Range Comments UA COLOR (test code=COLU) YELLOW YELLOW UA APPEARANCE (test code=APPU) HAZY CLEAR UA GLUCOSE DIPSTICK (test code=DGLUU) NEGATIVE mg/dL NEGATIVE UA BILIRUBIN DIPSTICK (test code=BILU) NEGATIVE NEGATIVE UA KETONE DIPSTICK (test code=KETU) NEGATIVE mg/dL NEGATIVE UA SPECIFIC GRAVITY (test code=SGU) 1.025 1.001-1.035 UA BLOOD DIPSTICK (test code=FAVIAN) 3+ (Large) NEGATIVE UA PH DIPSTICK (test code=JEEVAN) 6.0 5.0-8.0 UA PROTEIN DIPSTICK (test code=PROU) >=300 (3+) mg/dL Neg-15 UA UROBILINIOGEN DIPSTICK (test code=URO) 0.2 mg/dL 0.0-0.2 UA NITRITE DIPSTICK (test code=GARRISON) POSITIVE NEGATIVE UA LEUKOCYTE ESTERASE DIPSTICK (test code=LEUU) 2+ uL NEGATIVE UA MICROSCOPIC NEEDED? (test code=UAMICRO) UA WBC (test code=WBCU) per HPF 0-5 UA RBC (test code=RBCU) per HPF 0-5 UA EPITHELIAL CELLS (test code=EPIU) per HPF Few UA BACTERIA (test code=BACU) per HPF NONE Urine Source? Clean CatchBASIC METABOLIC [id number] 12:48:00* Test Item Value Reference Range Comments SODIUM (test code=NA) 139 mmol/L 128-145 POTASSIUM (test code=K) 4.8 mmol/L 3.5-5.1 CHLORIDE (test code=CL) 104.0 mmol/L 98-107 CARBON DIOXIDE (test code=CO2) 37.7 mmol/L 22-29 ANION GAP (test code=GAP) 2 mmol/L 10-20 GLUCOSE (test code=GLU) 142 mg/dL 70-110 BLOOD UREA NITROGEN (test code=BUN) 22 mg/dL 7-22 GLOMERULAR FILTRATION RATE (test code=GFR) 37 mL/min >=60 Estimated GFR by using Modified MDRD formula.Chronic kidney disease is defined as either kidney damageor GFR <60 mL/min/1.73 m2 for >3 months. CREATININE (test code=CREAT) 1.40 mg/dL 0.55-1.3 BUN/CREATININE RATIO (test code=BUN/CREA) 15.7 10-20 CALCIUM (test code=CA) 9.2 mg/dL 8.0-10.5 [id number] 12:48:00* Test Item Value Reference Range Comments TROPONIN-I (test code=TROPI) <0.015 ng/mL 0.00-0.056 CBC W/O [id number] 12:31:00* Test Item Value Reference Range Comments WHITE BLOOD CELL (test code=WBC) 3.6 K/mm3 4.5-12.5 RED BLOOD CELL (test code=RBC) 3.17 mill/mm3 3.7-5.2 HEMOGLOBIN (test code=HGB) 9.4 gram/dL 11.5-15.5 HEMATOCRIT (test code=HCT) 30.0 % 36.0-46.0 MEAN CELL VOLUME (test code=MCV) 94.6 fL 80-98 MEAN CELL HGB (test code=MCH) 29.7 picogram 27.0-33.0 MEAN CELL HGB CONCETRATION (test code=MCHC) 31.3 gram/dL 33.0-36.0 RED CELL DISTRIBUTION WIDTH (test code=RDW) 13.2 % 11.6-16.2 RED CELL DISTRIBUTION WIDTH SD (test code=RDW-SD) 46.3 fL 37.0-51.0 PLATELET COUNT (test code=PLT) 67 K/mm3 150-450 MEAN PLATELET VOLUME (test code=MPV) 10.5 fL 6.7-11.0 SCR MAMM BILATERAL FLORENTINO CAD [id number] 13:54:33 - SCR MAMM BILATERAL FLORENTINO CAD DIGITALBILATERAL DIGITAL SCREENING MAMMOGRAM 3D/2D WITH CAD: 10/31/2018CLINICAL: Asymptomatic. Digital breast tomosynthesis was performed in addition to routine CC and MLO views. Current mammographic images were evaluated by either a [employer] M-Vu or a [employer] ImageChecker CAD (computer aided detection system). No prior exams were available for comparison. The tissue of both breasts is heterogeneously dense. This may lower the sensitivity of ma mmography. There are benign calcifications in both breasts. No suspicious mass , architectural distortion, malignant type calcification, or lymph node abnormal ity detected. IMPRESSION: BENIGNThere is no mammographic evidence of malignancy . Resume annual screening mammography in one year. Michelle english/akilah:11/04/2018 13:54:33 Attending Technologist: Gem HINKLE, [facility]-FWImaging Technologist: Yulia HINKLE, [facility] g-FWletter sent: BIRADS 1-2 Normal Mammogram BI-RADS: 2 Benign
--- NOTE | 2019-04-10 14:45 | NUR ---
REPORT CALLED TO [facility]
--- NOTE | 2019-04-10 14:55 | NUR ---
INTERMEDIATE FACILITY DISCHARGE INFORMATION PATIENT HAS BEEN ACCEPTED TO: [facility] NAME: [facility] ADDRESS: [id number] [facility] ACCEPTING OUTSIDE SALES: DELIO MAHER ACCEPTING MD: CADENCE ROOM: 306A NURSE CALL REPORT TO: [phone] IMM SIGNED AND OBTAINED (if applicable): YES THE FOLLOWING DOCUMENTS MUST ACCOMPANY PATIENT FOR TRANSFER: COPIED CHART: YES
--- NOTE | 2019-04-10 15:25 | Progress Note ---
DATE: 04/10/2019 SUBJECTIVE: The patient states she feels better. She is asking to go home. She still has some cough and some congestion. PHYSICAL EXAMINATION: VITAL SIGNS: The patient is afebrile. The blood pressure is 172/70 and the pulse ox is 97%. Pulse is 70. HEENT: Shows no facial swelling or erythema. CARDIAC: Reveals a regular rate and rhythm with normal S1 and S2. LUNGS: Auscultation of lungs reveals few rhonchi bilaterally. There is no wheezing. ABDOMEN: Soft and nontender. There is no rebound or guarding. EXTREMITIES: Shows no leg edema or calf tenderness. There is no cyanosis or clubbing. SKIN: Shows no rashes. NEUROLOGICAL: Shows no focal abnormalities. RADIOGRAPHIC DATA: Chest CT shows cardiomegaly and some patchy bilateral consolidation, suggestive of CHF. IMPRESSION: 1. Cirrhosis. 2. Anemia secondary to chronic blood loss. 3. Metabolic encephalopathy. 4. Community-acquired pneumonia. 5. Thrombocytopenia. 6. Diabetes. 7. Possible congestive heart failure. PLAN: 1. Check echocardiogram. 2. Continue current regimen for cirrhosis. 3. Continue antibiotics. 4. Continue to monitor mental status. Andry Maya MD [facility]/DEE[facility] /[id number]
[2019-04-10 16:00] VITALS: BP 152/68
[2019-04-10] MEDS ORDERED: RISPERIDONE 0.5 MG TAB PO SCH (21:00)
--- NOTE | 2019-04-10 21:22 | Progress Note ---
DATE: 04/10/2019 Psychiatric Progress Note SUBJECTIVE: The patient evaluated and events noted. The patient is in the room. She is calm and cooperative. She knows where she is. She reports feeling anxious and depressed. She denies any suicidal or homicidal ideation. She denies any hallucination. She reports poor sleep. As per nursing staff, the patient has been agitated, pulling out IV twice, but she does not remember that. ASSESSMENT: 1. Unspecified psychosis. 2. Unspecified dementia with behavior disturbances. PLAN: 1. To continue Prozac 10 mg p.o. at bedtime. 2. Continue Aricept 5 mg p.o. at bedtime. 3. Continue Haldol p.r.n. IM. 4. Continue p.r.n. Ativan IM. 5. Add Risperdal 0.5 mg p.o. at bedtime. 6. Continue Risperdal 0.5 mg p.o. q.6 hours as needed. 7. Monitor for agitation. Dictated by Di Camacho PA-C Onofre Butts MD [facility] /[id number]
--- NOTE | 2019-04-11 00:12 | Discharge Summary ---
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 DISCHARGE DIAGNOSES: Abdominal pain, acute urinary tract infection, altered mental status, cirrhosis of the liver, history of chronic obstructive pulmonary disease, hypertension with chronic kidney disease stage 3, type 2 diabetes with chronic kidney disease stage 3, chronic kidney disease stage 3, ambulatory dysfunction, hypothyroidism, urinary retention. HISTORY: Hypertension, type 2 diabetes, CAD, COPD, hypothyroidism, IA, basal cell carcinoma, colon cancer, thyroid cancer, OA, stroke, CVA, TIA, wheelchair-bound, cirrhosis, depression, CKD stage 3, obesity, anxiety, insomnia, dementia, seizures. SURGICAL HISTORY: Appendectomy, hysterectomy, cholecystectomy, x4, partial colectomy. FAMILY HISTORY: The patient's father had a heart attack. The patient's mother had diabetes. SOCIAL HISTORY: Noncontributory. HOSPITAL COURSE: A 73-year-old female seen in Dr. Aguirre's office for 2 days of fatigue, weakness, increased confusion, and shortness of breath. She will finish Ceftin on 04/12. She went to [facility] in the [facility] for UTI and TIA last week. She had a flu vaccine on 04/04. She was on 4 L/minute in Dr. Aguirre's office, so she was sent to the hospital. On admission, the patient was started on Zithromax and Rocephin. Pulmonology was consulted. Chest x-ray showed patchy increased interstitial and airspace opacities present bilaterally, which may be seen in the setting of edema or multifocal infectious/inflammatory process. The patient then had a CT of the abdomen and pelvis, which showed findings suggestive of cirrhosis. Trace bilateral pleural effusions with associated bibasilar atelectasis/consolidation. CT of the chest showed cardiomegaly and pulmonary enlargement with patchy bilateral consolidation and ground-glass opacities and small pleural effusions suggestive of CHF, but superimposed pneumonia cannot be excluded. The patient's flu was negative and urine culture came back negative. Due to increased confusion, Psychology was consulted, who continued Prozac at bedtime, Aricept 5 mg daily, and Haldol q.6 p.r.n. as well as Ativan q.6 p.r.n. and Risperdal p.r.n. An echo was done, which showed an EF of about 55%. The patient is breathing much better, feeling better and on oxygen at baseline. The patient developed urinary retention, so a Ibarra was placed and Urology was consulted. The patient was approved for snf facility for physical therapy and IV antibiotics. The Ibarra was in place at the time of discharge. The patient will follow up with Urology outpatient. The patient's family understands discharge instructions and agrees to plan. Vital signs stable, the patient afebrile. Dictated by Aislinn Vega NP MD [facility]/DEEPAK /[id number]
== END 2019-04-10 17:10 | DRG 689 ==
LOC: ER 11:06 → ERHOLD 11:43 → MED/SURG3 20:05
PROVIDERS: ADMIT Internal Medicine; ATTEND Internal Medicine
DX: N39.0 Urinary tract infection, site not specified (principal); G93.41 Metabolic encephalopathy; J18.9 Pneumonia, unspecified organism; F03.91 Unspecified dementia, unspecified severity, with behavioral disturbance; J44.0 Chronic obstructive pulmonary disease with (acute) lower respiratory infection; J44.1 Chronic obstructive pulmonary disease with (acute) exacerbation; I25.10 Atherosclerotic heart disease of native coronary artery without angina pectoris; Z86.73 Personal history of transient ischemic attack (TIA), and cerebral infarction without residual deficits; E11.22 Type 2 diabetes mellitus with diabetic chronic kidney disease; I12.9 Hypertensive chronic kidney disease with stage 1 through stage 4 chronic kidney disease, or unspecified chronic kidney disease; N18.3 Chronic kidney disease, stage 3 (moderate); E66.9 Obesity, unspecified; Z68.35 Body mass index [BMI] 35.0-35.9, adult; K74.60 Unspecified cirrhosis of liver; D69.6 Thrombocytopenia, unspecified; E03.9 Hypothyroidism, unspecified; E83.42 Hypomagnesemia; R33.9 Retention of urine, unspecified; D50.0 Iron deficiency anemia secondary to blood loss (chronic); Z99.3 Dependence on wheelchair; F41.9 Anxiety disorder, unspecified; E11.65 Type 2 diabetes mellitus with hyperglycemia; R26.9 Unspecified abnormalities of gait and mobility; I51.7 Cardiomegaly
CPT/HCPCS: 36415; 51700; 70450; 71045; 71250; 74176; 80048; 80053; 80185; 81001; 82140; 82550; 82553; 83036; 83690; 83735; 83880; 84100; 84443; 84484; 85025; 85610; 85730; 86850; 86900; 87086; 87400; 93005; 93306; 97139; 99285; J0360; J0456; J0696; J2060; J2405; J7030